=== PATIENT | female | born 1950 | race Caucasian/White ===

== ENCOUNTER 2021-03-04 11:55 | Day surgery (SDC) | payer MEDICARE, SELFPAY ==
[2021-02-27 12:43] VITALS: BMI 26.0
--- NOTE | 2021-03-03 08:53 | HO.ANESPROP2 ---
Documented by User: Anu Torrez 03/03/21 08:55 HPI - Anesthesia Eval Consult details Narrative: 70yo F for Colonoscopy Plavix for ? cerebral infarct PMFSH Past Medical History Medical History History of foot fracture HTN (hypertension) Hx of Clostridium difficile infection Hx of kidney disease Irritable bowel syndrome with diarrhea Left arm weakness Left shoulder pain Neck pain On clopidogrel therapy Osteopenia Surgical History Surgical History History of bunionectomy History of surgery Hx of colonoscopy Social History Social History Patient Tobacco Use Status: Never used Tobacco Are you DNR?: No Advance Directives: No Advance Directives Information Provided: No Advance Directives on File: No Meds Allergies Allergy/AdvReac Type Severity Reaction Status Date / Time Sulfa (Sulfonamide Allergy Unknown Verified 03/04/21 12:47 Antibiotics) Home Medications Medication Instructions Recorded Confirmed Last Taken Type acetaminophen [Arthritis Pain 650 mg PO Q12H 02/27/21 02/27/21 03/04/21 08:30 History Relief (acetam)] albuterol sulfate 2 puff INHALATION Q6H PRN 02/27/21 02/27/21 Unknown History betamethasone dipropionate appl TOPICAL 02/27/21 Unknown History buspirone 1 tab PO BID 02/27/21 02/27/21 Unknown History clopidogrel 1 tab PO DAILY 02/27/21 02/27/21 02/25/21 History diltiazem HCl 4 cap PO DAILY 02/27/21 02/27/21 03/04/21 08:30 History duloxetine 1 cap PO DAILY 02/27/21 02/27/21 03/04/21 08:30 History gabapentin 1 cap PO BID 02/27/21 02/27/21 03/04/21 08:30 History lisinopril 1 tab PO DAILY 02/27/21 02/27/21 Unknown History rosuvastatin 1 tab PO QPM 02/27/21 02/27/21 Unknown History trazodone 1 tab PO BEDTIME 02/27/21 02/27/21 Unknown History Exam Exam Date and Time: March 03, 2021 0853 Height,Weight and Vital Signs: Height 5 ft 1 in Weight 62.596 kg Assessment and Plan Assessment Anesthesia Assessment: Chart Reviewed Documented by User: Abida Perez 03/04/21 12:52 PMFSH Past Medical History Medical History History of foot fracture HTN (hypertension) Hx of Clostridium difficile infection Hx of kidney disease Irritable bowel syndrome with diarrhea Left arm weakness Left shoulder pain Neck pain On clopidogrel therapy Osteopenia Surgical History Surgical History History of bunionectomy History of surgery Hx of colonoscopy Social History Social History Patient Tobacco Use Status: Never used Tobacco Are you DNR?: No Advance Directives: No Advance Directives Information Provided: No Advance Directives on File: No Meds Allergies Allergy/AdvReac Type Severity Reaction Status Date / Time Sulfa (Sulfonamide Allergy Unknown Verified 03/04/21 12:47 Antibiotics) Home Medications Medication Instructions Recorded Confirmed Last Taken Type acetaminophen [Arthritis Pain 650 mg PO Q12H 02/27/21 02/27/21 03/04/21 08:30 History Relief (acetam)] albuterol sulfate 2 puff INHALATION Q6H PRN 02/27/21 02/27/21 Unknown History betamethasone dipropionate appl TOPICAL 02/27/21 Unknown History buspirone 1 tab PO BID 02/27/21 02/27/21 Unknown History clopidogrel 1 tab PO DAILY 02/27/21 02/27/21 02/25/21 History diltiazem HCl 4 cap PO DAILY 02/27/21 02/27/21 03/04/21 08:30 History duloxetine 1 cap PO DAILY 02/27/21 02/27/21 03/04/21 08:30 History gabapentin 1 cap PO BID 02/27/21 02/27/21 03/04/21 08:30 History lisinopril 1 tab PO DAILY 02/27/21 02/27/21 Unknown History rosuvastatin 1 tab PO QPM 02/27/21 02/27/21 Unknown History trazodone 1 tab PO BEDTIME 02/27/21 02/27/21 Unknown History Exam Airway Mallampati Class: II TM Dist: >3cm Neck ROM: Full Loose/Missing/Broken Teeth: No Heart: RRR Lungs: CTA Assessment and Plan Assessment Anesthesia Assessment: Anesthesia Plan Discussed and Chart Reviewed Final Anesthetic Review NPO: Yes Final Preanesthetic Review: Meds/Allgs Chart Reviewed, Consent Obtained/Reviewed and Anes Risks/Benef Reviewed Patient Risk: Low Procedure Risk: Low Anesthetic Plan Anesthetic Plan: MAC: Disposition: Standard PACU and Extended PACU
[2021-03-04 12:32] VITALS: BP 128/60; PULSE 70; RESP 18; TEMP 36.6; O2SAT 95
[2021-03-04] MEDS: Lactated Ringers 1,000 ML 100 ML IVCONT (12:49)
--- NOTE | 2021-03-04 12:55 | MHC.SHP ---
Pre-Procedural Eval Section A Date of Service: 03/04/21 Section B Chief Complaint: screening Details of Present Illness: see H&P no changes Relevant Family History (Specify if Yes): No Relevant Social History: None Present Medications: see Short Stay Collaborative assessment Medical History: No relevant PMH History of Previous Operations: No relevant previous surgery Allergies: Allergies Allergy/AdvReac Type Severity Reaction Status Date / Time Sulfa (Sulfonamide Allergy Unknown Verified 03/04/21 12:47 Antibiotics) Review of Systems Sugical H&P ROS: Negative: Constitution, Cardiovascular, Respiratory, Neurological, Psychiatric, Hem-Onc, Allergic/Immunologic, Gastrointestinal, Genitourinary, Musculoskeletal, Integumentary, Endocrine and Eyes/Ears/Nose/Throat Exam Surgical H&P Exam: Normal: HEENT, Normal: Heart, Normal: Lungs, Normal: Extremities, Normal: Abdomen, Normal: Skin and Normal: Neurological Plan Diagnosis/Plan: Unchanged I have reviewed the history and physical and performed a pertinent physical examination on my patient. No changes have occurred unless specified.
--- NOTE | 2021-03-04 13:38 | P.BOP_ITS ---
Brief Operative Note Date of Service: 03/04/21 Pre-op diagnosis: screening Post-op diagnosis: same (colon polyp) Surgeon: Gualberto Maldonado Anesthesia: MAC Was an [id number] Application Developer used for this Procedure?: No Estimated blood loss (mL): 5 Pathology: other (polyp x1) Condition: stable Disposition: PACU
[2021-03-04 13:41] VITALS: BP 101/54; PULSE 74; RESP 18; TEMP 36.7; O2SAT 95
[2021-03-04 13:56] VITALS: BP 111/59; PULSE 65; RESP 16; TEMP 36.7; O2SAT 97
--- NOTE | 2021-03-04 18:28 | OP_ITS ---
SURGEON: Gualberto Maldonado MD INDICATIONS: Colon cancer screening and prior history of adenomatous colon polyps. PREOPERATIVE DIAGNOSIS: POSTOPERATIVE DIAGNOSIS: PROCEDURE PERFORMED: Colonoscopy to the terminal ileum with biopsy. ESTIMATED BLOOD LOSS: COMPLICATIONS: ANESTHESIA: ASSISTANTS: SPECIMENS: MEDICATIONS: Monitored anesthesia care. DESCRIPTION OF PROCEDURE: History and physical performed. The risks and benefits of the procedure were explained to the patient. Informed consent was obtained. The patient was placed in left lateral decubitus position. A digital rectal exam was performed and was found to be normal. The Olympus pediatric video colonoscope was introduced into the rectum and advanced to the cecum without difficulty. The cecum was identified by transillumination, palpation, and identification of ileocecal valve. Examination was performed and the scope was removed. She tolerated the procedure well and was taken to recovery area in stable condition. FINDINGS: The terminal ileum was examined and was normal. The visualized colonic mucosa was normal. There was a moderate amount of liquid and some formed stool present, which limited the sensitivity examination for detection of small polyps. This was washed and suctioned as best possible. The procedure was extended due to the patient's very tortuous colon and the remaining stool. A single polyp in the cecum measuring less than 5 mm was removed with biopsy forceps. No other polyps were identified. Retroflexed examination showed moderately large internal hemorrhoids. There was moderate sigmoid diverticulosis. IMPRESSION: 1. Colon polyp. 2. Diverticulosis. 3. Internal hemorrhoids. RECOMMENDATIONS: 1. Follow up the biopsy results. 2. Further screening is optional based on the patient's age. MD NIKKI Kim/DUNGL / [id number]
== END 2021-03-04 14:30 | disposition home or self-care (01) ==
PROVIDERS: PCP Internal Medicine; Visit Provider Internal Medicine Gastroenterology
PROC: 0DJD8ZZ Inspection of Lower Intestinal Tract, Via Natural or Artificial Opening Endoscopic (ICD-10-PCS; CPT 45378; principal; 2021-03-04 13:00)
DX: Z12.11 Encounter for screening for malignant neoplasm of colon (principal); Z86.010 Personal history of colon polyps; Z83.71 Family history of colonic polyps; D12.0 Benign neoplasm of cecum; K57.30 Diverticulosis of large intestine without perforation or abscess without bleeding; K64.8 Other hemorrhoids; K58.0 Irritable bowel syndrome with diarrhea; I10 Essential (primary) hypertension; N28.89 Other specified disorders of kidney and ureter; M85.80 Other specified disorders of bone density and structure, unspecified site; Z79.899 Other long term (current) drug therapy; Z88.2 Allergy status to sulfonamides
CPT/HCPCS: 45380; 88305